=== PATIENT | female | born 1945 | race Caucasian/White ===

== ENCOUNTER 2018-08-14 13:18 | Outpatient (CLI) | payer OTHER ==
[~2018-08-14 13:18] MED LIST: NABUMETONE500 MG PO; PERCOCET 5/3251 TAB PO
== END 2018-08-14 13:28 | disposition home or self-care (01) ==
LOC: MAMO-SONO 13:18
DX: Z12.31 Encounter for screening mammogram for malignant neoplasm of breast (principal); Z87.898 Personal history of other specified conditions; N62 Hypertrophy of breast

== ENCOUNTER 2018-08-22 10:29 | Outpatient (CLI) | payer OTHER | END 2018-08-22 10:52 | disposition home or self-care (01) | LOC: NUCLEAR 10:29 | DX: M81.0 Age-related osteoporosis without current pathological fracture (principal) ==

== ENCOUNTER 2019-09-02 14:11 | Outpatient (CLI) | payer OTHER | END 2019-09-02 15:02 | disposition home or self-care (01) | LOC: NUCLEAR 14:11 | DX: I87.2 Venous insufficiency (chronic) (peripheral) (principal) ==

== ENCOUNTER 2019-09-05 12:48 | Outpatient (CLI) | payer OTHER | END 2019-09-05 14:47 | disposition home or self-care (01) | LOC: RAD 12:48 | DX: M12.861 Other specific arthropathies, not elsewhere classified, right knee (principal) ==

== ENCOUNTER 2019-09-06 10:58 | Outpatient (CLI) | payer OTHER | END 2019-09-06 11:00 | disposition home or self-care (01) | LOC: SONOGRAMA 10:58 | DX: M17.11 Unilateral primary osteoarthritis, right knee (principal) ==

== ENCOUNTER 2019-10-21 12:36 | Outpatient (CLI) | payer OTHER | END 2019-10-21 12:42 | disposition home or self-care (01) | LOC: LAB 12:36 | DX: D68.8 Other specified coagulation defects (principal); I10 Essential (primary) hypertension; R07.89 Other chest pain; E78.2 Mixed hyperlipidemia; N39.0 Urinary tract infection, site not specified ==

== ENCOUNTER 2020-01-17 11:45 | Outpatient (CLI) | payer OTHER | END 2020-01-17 11:46 | disposition home or self-care (01) | LOC: NUCLEAR 11:45 | PROVIDERS: ATTEND Internal Medicine Cardiovascular Disease | DX: I87.2 Venous insufficiency (chronic) (peripheral) (principal) ==

== ENCOUNTER 2020-01-29 14:12 | Outpatient (CLI) | payer OTHER | END 2020-01-29 14:22 | disposition home or self-care (01) | LOC: TOM 14:12 | PROVIDERS: ATTEND Internal Medicine Cardiovascular Disease | DX: M12.88 Other specific arthropathies, not elsewhere classified, other specified site (principal) ==

== ENCOUNTER → 2020-02-03 | Outpatient (CLI) | payer OTHER | END | disposition home or self-care (01) | LOC: TOM 08:00 → MRI 08:31 → TOM 08:31 | PROVIDERS: ATTEND Internal Medicine Cardiovascular Disease | DX: M12.88 Other specific arthropathies, not elsewhere classified, other specified site (principal) | CPT/HCPCS: 73718 ==

== ENCOUNTER 2020-03-02 11:40 | Inpatient (IN) | payer OTHER ==
[~2020-03-02] VITALS: Ht 165.1 cm; Wt 95.3 kg
[2020-03-10] MEDS ORDERED: ALIVE PO (09:19)
[2020-03-17] MEDS ORDERED: NABUMETONE750 MG (07:53)
[2020-03-17] MEDS ORDERED: VASOFLEX TABLE1 EACH (07:53)
[2020-03-17] MEDS ORDERED: MAXIMUM D3325 MCG (07:54)
[2020-03-17] MEDS ORDERED: ALIVE ONCE DAI1 EACH (07:55)
[2020-03-17] MEDS ORDERED: ALEVE220 MG (07:56)
== END 2020-03-19 18:30 | DRG 470 ==
LOC: O/R 03-17 05:40 → SURH 03-17 05:40
PROVIDERS: ADMIT Orthopaedic Surgery; ATTEND Orthopaedic Surgery
PROC: 0SRC0J9 Replacement of Right Knee Joint with Synthetic Substitute, Cemented, Open Approach (ICD-10-PCS; principal; 2020-03-17 14:30)
DX: M17.11 Unilateral primary osteoarthritis, right knee (principal); D64.9 Anemia, unspecified; Z20.828 Contact with and (suspected) exposure to other viral communicable diseases

== ENCOUNTER 2020-08-24 12:07 | Outpatient (CLI) | payer OTHER ==
[~2020-08-24 12:07] MED LIST changes: +ALEVE220 MG; +ALIVE ONCE DAI1 EACH; +ALIVE PO; +MAXIMUM D3325 MCG; +NABUMETONE750 MG; +VASOFLEX TABLE1 EACH
== END 2020-08-24 12:17 | disposition home or self-care (01) ==
LOC: RAD 12:07
PROVIDERS: ATTEND Orthopaedic Surgery
DX: M25.762 Osteophyte, left knee (principal); M25.561 Pain in right knee; M25.562 Pain in left knee

== ENCOUNTER 2021-05-06 12:20 | Outpatient (CLI) | payer OTHER | END 2021-05-06 12:36 | disposition home or self-care (01) | LOC: RAD 12:20 | PROVIDERS: ATTEND Orthopaedic Surgery | DX: M25.561 Pain in right knee (principal); M25.562 Pain in left knee ==